=== PATIENT | female | born 1940 | race African-American/Black ===

== ENCOUNTER → 2016-07-29 | Outpatient (CLI) | payer MEDICARE | LOC: RAD 07:25 | PROVIDERS: ATTEND Specialist | DX: N28.89 Other specified disorders of kidney and ureter (principal) | CPT/HCPCS: 76770 ==

== ENCOUNTER → 2016-09-08 | Outpatient (CLI) | payer MEDICARE | LOC: RAD 13:16 | PROVIDERS: ATTEND Specialist | DX: R31.0 Gross hematuria (principal) | CPT/HCPCS: 74183; A9576 ==